=== PATIENT | female | born 1950 | race Caucasian/White ===

== ENCOUNTER 2018-02-03 22:24 | Emergency (ER) | payer OTHER ==
[~2018-02-03] VITALS: Ht 170.2 cm; Wt 90.0 kg
[~2018-02-03 22:24] MED LIST: ACTO5TAB PO; ARIP2 PO; BYST10TA2 PO; CLON-352 PO; CLON0.5T PO; CYMB60CA PO; LEVO25TA36 PO; OXYC-360 PO; PROT40TA PO
[2018-02-03 22:29] VITALS: BP 130/75; PULSE 75; RESP 16; TEMP 98.6; O2SAT 100
[2018-02-03] MEDS ORDERED: SODIUM CHLORID 0.9% 500 ML INJ 500 ML IV ONE (22:45)
[2018-02-03] MEDS ORDERED: ROSU1TAB6 PO (22:46)
[2018-02-03] MEDS ORDERED: VITA2000 PO (22:46)
[2018-02-03] MEDS ORDERED: CLON0.5T PO (22:46)
[2018-02-03] MEDS ORDERED: INUL2TAB2 (22:46)
[2018-02-03] MEDS ORDERED: LEVO50TA4 PO (22:46)
[2018-02-03] MEDS ORDERED: TIZA4CAP3 PO (22:46)
[2018-02-03] MEDS ORDERED: PROB1CHW4 CHEW (22:46)
[2018-02-03] MEDS ORDERED: PANT40TA3 PO (22:46)
[2018-02-03] MEDS ORDERED: CLON0.1T PO (22:46)
[2018-02-03] MEDS ORDERED: MULT-244 (22:46)
[2018-02-03] MEDS ORDERED: MAGN250T11 PO (22:46)
[2018-02-03] MEDS ORDERED: ARIP1TAB12 PO (22:46)
[2018-02-03] MEDS ORDERED: DULO1CAP3 PO (22:46)
[2018-02-03] MEDS ORDERED: METO25TA3 PO (22:46)
[2018-02-03] MEDS ORDERED: AMLO5TAB2 PO (22:46)
[2018-02-03] MEDS ORDERED: LOSA50TA PO (22:46)
[2018-02-03] MEDS ORDERED: MODA200T12 PO (22:46)
[2018-02-03] MEDS ORDERED: CALC1TAB87 PO (22:46)
[2018-02-03] MEDS ORDERED: MELO15TA20 PO (22:46)
[2018-02-03] MEDS ORDERED: RISE1TAB13 PO (22:46)
[2018-02-03 23:33] LABS: ALBUMIN 2.7 GM/DL (3.4-5.0); ALT (GPT) 29 U/L (10-53); AST (GOT) 28 U/L (15-37); BICARBONATE 24.6 MEQ/L (21.0-32.0); BLOOD UREA NITROGEN 18 MG/DL (7-18); CALCIUM 8.4 MG/DL (8.5-10.1); CHLORIDE 111 MEQ/L (98-107); CREATININE 1.04 MG/DL (0.50-1.00); GLOMERULAR FILTRATION RATE 53 ML/MIN (>89); GLUCOSE,RANDOM 102 MG/DL (74-106); SODIUM (NA) 143 MEQ/L (136-145)
[2018-02-03 23:35] LABS: ALKALINE PHOSPHATASE 44 U/L (45-117); TOTAL BILIRUBIN ADULT 0.2 MG/DL (0.2-1.0); TOTAL PROTEIN 6.1 GM/DL (6.4-8.2)
--- NOTE | 2018-02-03 23:51 | PD ---
Physical Exam Date Seen by Provider: Feb 03, 2018 Time Seen by Provider: 23:48 Narrative 67-year-old here for evaluation to repair laceration. Please refer to his note. Data Data Last Documented VS Vital Signs Date Time Temp Pulse Resp B/P (MAP) Pulse Ox O2 Delivery O2 Flow Rate FiO2 02/03/18 22:33 16 100 Room Air 02/03/18 22:29 98.6 75 130/75 (93) Orders Orders Complete Blood Count With Diff (02/03/18 22:38) Comprehensive Metabolic Panel (02/03/18 22:38) Sodium Chlorid 0.9% 500 Ml Inj (Ns 500 M (02/03/18 22:45) Ct Brain W/O Iv Contrast(Rout) (02/03/18 ) Ct Facial Bones W/O Iv Cont (02/03/18 ) Ct Cerv Spine W/O Contrast (02/03/18 ) Labs Laboratory Tests Test 02/03/18 22:50 Blood Urea Nitrogen 18 MG/DL Creatinine 1.04 MG/DL Random Glucose 102 MG/DL Total Protein 6.1 GM/DL Albumin 2.7 GM/DL Calcium Level 8.4 MG/DL Alkaline Phosphatase 44 U/L Aspartate Amino Transf (AST/SGOT) 28 U/L Alanine Aminotransferase (ALT/SGPT) 29 U/L Total Bilirubin 0.2 MG/DL Sodium Level 143 MEQ/L Potassium Level 4.2 MEQ/L Chloride Level 111 MEQ/L Carbon Dioxide Level 24.6 MEQ/L Anion Gap 7 MEQ/L Estimat Glomerular Filtration Rate 53 ML/MIN MDM Medical Record Reviewed: Yes Supervised Visit with KYMBERLY: No Procedures Procedure Narrative LACERATION LOCATION: face LENGTH: 15 cm NUMBER OF STITCHES/BIMAL: 36 sutures, 7 sutures (deep) REPAIR: The area of the laceration was prepped with Betadine and sterilely draped. The laceration was infiltrated with 1% Xylocaine. The wound was copiously irrigated and explored without evidence of foreign body, tendon injury or neurovascular injury. The wound was closed using 4-0 Prolene and 4-0 Vycril. This was a 2 layer repair. A sterile dressing was applied. The patient was advised to keep the dressing clean and dry. Patient tolerated the procedure well. Ti Mckeon Feb 03, 2018 23:51
[2018-02-03 23:57] LABS: AUTOMATED NEUTROPHIL # 4.2 TH/MM3 (1.8-7.7); BASOPHIL # 0.1 TH/MM3 (0-0.2); BASOPHIL % 0.9 % (0.0-2.0); EOSINOPHIL # 0.3 TH/MM3 (0-0.4); EOSINOPHIL % 4.6 % (0.0-4.0); HEMATOCRIT 40.5 % (35.0-46.0); HEMOGLOBIN 12.9 GM/DL (11.6-15.3); LYMPH % 26.4 % (9.0-44.0); LYMPHOCYTE # 1.8 TH/MM3 (1.0-4.8); MEAN CELL VOLUME 95.2 FL (80.0-100.0); MEAN CORPUSCULAR HEMOGLOBIN 30.3 PG (27.0-34.0); MEAN CORPUSCULAR HGB CONC 31.9 % (32.0-36.0); MEAN PLATELET VOLUME 8.2 FL (7.0-11.0); MONO % 7.3 % (0.0-8.0); MONOCYTE # 0.5 TH/MM3 (0-0.9); NEUT % 60.8 % (16.0-70.0); PLATELET COUNT 299 TH/MM3 (150-450); RED BLOOD COUNT 4.25 MIL/MM3 (4.00-5.30); RED CELL DISTRIBUTION WIDTH 14.8 % (11.6-17.2)
--- NOTE | 2018-02-04 00:40 | PD ---
HPI Chief Complaint: Fall Time Seen by Provider: 22:33 Travel History International Travel<30 days: No Contact w/Intl Traveler<30days: No Traveled to known affect area: No History of Present Illness HPI Patient is a 67-year-old female who fell out of her bed getting up to go to the bathroom and smashed her face into nightstand has a 20 cm laceration from her her scalp line midline down into her mid right forehead all the way out to the right caodaism is linear in a flap-like picture. She denies syncope she says she tripped patient had a lot of blood at the scene according the paramedics and originally was hypotensive was given 500 cc bolus arrives normotensive at 120 systolic and patient main complaint is her left elbow and left shoulder and forehead pain she is in c-collar and longboard we logrolled her off the backboard she has no spinous process tenderness and she is CAT scan head neck face and suture repair will be done by the [facility] Past Medical History Arthritis: Yes Asthma: No Autoimmune Disease: No Anxiety: No Depression: Yes Heart Rhythm Problems: No Cancer: No Cardiovascular Problems: Yes High Cholesterol: Yes Chemotherapy: No Chest Pain: No Congestive Heart Failure: No COPD: No Cerebrovascular Accident: No Diabetes: No Diminished Hearing: No Endocrine: Yes GERD: Yes Genitourinary: No Headaches: Yes Hiatal Hernia: No Hypertension: Yes Immune Disorder: No Musculoskeletal: Yes Neurologic: Yes Psychiatric: Yes Reproductive: No Respiratory: Yes Migraines: No Radiation Therapy: No Seizures: No Sleep Apnea: Yes (USES CPAP MACHINE) Thyroid Disease: Yes Ulcer: No Tetanus Vaccination: < 5 Years Influenza Vaccination: No Past Surgical History Abdominal Surgery: Yes (COLOSTOMY, COLOSTOMY REVERSAL) Body Medical Devices: PARTIAL THYROID WITH BIMAL, NECK WITH SCREWS Joint Replacement: Yes (BILATERAL HIPS) Oral Surgery: Yes (T&A, WISDOM TEETH) Pacemaker: No Thoracic Surgery: Yes (PARTIAL THYROIDECTOMY) Social History Alcohol Use: No Tobacco Use: No Substance Use: No Allergies-Medications (Allergen,Severity, Reaction): Coded Allergies: Sulfa (Sulfonamide Antibiotics) (Unverified Allergy, Severe, ITCH, 02/03/18) morphine (Unverified Allergy, Severe, VOMITING, 02/03/18) Reported Meds & Prescriptions Reported Meds & Active Scripts Active Keflex (Cephalexin) 250 Mg Cap 250 Mg PO Q8HR Bacitracin Topical 500 Unit/Gm Oint 1 Applic TOPICAL BID Ibuprofen 600 Mg Tab 600 Mg PO Q6H PRN [place] (Hydrocodone-Acetaminophen) 5 Mg-325 Mg Tab 1 Tab PO Q4H PRN Reported Digestive Advantage Probiotic (Lactobacillus Rhamnosus (GG)) 1 Chew 1 Tab CHEW Fiber Gummies (Inulin) 2 Gram Tab.chew Vitamin D3 (Cholecalciferol) 2,000 Unit Cap 2,000 Units PO DAILY Magnesium Oxide 250 Mg Tab 250 Mg PO DIRECTED Calcium 600 with Vitamin D (Calcium Carbonate-Cholecalciferol) 600-400 mg-Unit Tab 1 Tab PO DAILY Spectravite Senior (Multivit with Iron-Minerals) 1 Each Tablet Tizanidine (Tizanidine HCl) 4 Mg Cap 4 Mg PO TID Aripiprazole 10 Mg Tab 10 Mg PO DAILY Clonazepam 0.5 Mg Tab 0.5 Mg PO BID Duloxetine DR (Duloxetine HCl) 60 Mg Capdr 60 Mg PO DAILY Clonidine (Clonidine HCl) 0.1 Mg Tab 0.1 Mg PO BID Risedronate 150 Mg Tab 150 Mg PO Q30D Amlodipine (Amlodipine Besylate) 5 Mg Tab 5 Mg PO DAILY Metoprolol Tartrate 25 Mg Tab 25 Mg PO BID Losartan (Losartan Potassium) 50 Mg Tab 50 Mg PO DAILY Rosuvastatin (Rosuvastatin Calcium) 10 Mg Tab 10 Mg PO HS Modafinil 200 Mg Tab 200 Mg PO DAILY Pantoprazole (Pantoprazole Sodium) 40 Mg Tab 40 Mg PO DAILY Meloxicam 15 Mg Tab 15 Mg PO DAILY Levothyroxine (Levothyroxine Sodium) 50 Mcg Tab 50 Mcg PO DAILY Review of Systems Except as stated in HPI: all other systems reviewed are Neg Physical Exam Narrative GENERAL: Obvious large linear laceration 20 cm to the forehead from the scalp line to the right caodaism. Bleeding controlled with a pressure dressing SKIN: Warm and dry. Large 20 cm linear lack through the forehead to the right caodaism HEAD: Atraumatic. Normocephalic. EYES: Pupils equal and round. No scleral icterus. No injection or drainage. ENT: No nasal bleeding or discharge. Mucous membranes pink and moist. NECK: Trachea midline. No JVD. Patient is in c-collar CARDIOVASCULAR: Regular rate and rhythm. RESPIRATORY: No accessory muscle use. Clear to auscultation. Breath sounds equal bilaterally. GASTROINTESTINAL: Abdomen soft, non-tender, nondistended. Hepatic and splenic margins not palpable. MUSCULOSKELETAL: Extremities patient has tenderness and swelling to the left elbow and the left shoulder NEUROLOGICAL: Awake and alert. No obvious cranial nerve deficits. Motor grossly within normal limits. Five out of 5 muscle strength in the arms and legs. Normal speech. PSYCHIATRIC: Appropriate mood and affect; insight and judgment normal. Data Data Last Documented VS Vital Signs Date Time Temp Pulse Resp B/P (MAP) Pulse Ox O2 Delivery O2 Flow Rate FiO2 02/03/18 22:33 16 100 Room Air 02/03/18 22:29 98.6 75 130/75 (93) Orders Orders Complete Blood Count With Diff (02/03/18 22:38) Comprehensive Metabolic Panel (02/03/18 22:38) Sodium Chlorid 0.9% 500 Ml Inj (Ns 500 M (02/03/18 22:45) Ct Brain W/O Iv Contrast(Rout) (02/03/18 ) Ct Facial Bones W/O Iv Cont (02/03/18 ) Ct Cerv Spine W/O Contrast (02/03/18 ) Shoulder, Complete (>2vws) (02/03/18 ) Elbow, Complete (4 Vws) (02/04/18 ) Morphine Inj (Morphine Inj) (02/04/18 01:15) Ed Discharge Order (02/04/18 02:20) Labs Laboratory Tests Test 02/03/18 22:50 02/03/18 23:45 Blood Urea Nitrogen 18 MG/DL Creatinine 1.04 MG/DL Random Glucose 102 MG/DL Total Protein 6.1 GM/DL Albumin 2.7 GM/DL Calcium Level 8.4 MG/DL Alkaline Phosphatase 44 U/L Aspartate Amino Transf (AST/SGOT) 28 U/L Alanine Aminotransferase (ALT/SGPT) 29 U/L Total Bilirubin 0.2 MG/DL Sodium Level 143 MEQ/L Potassium Level 4.2 MEQ/L Chloride Level 111 MEQ/L Carbon Dioxide Level 24.6 MEQ/L Anion Gap 7 MEQ/L Estimat Glomerular Filtration Rate 53 ML/MIN White Blood Count 7.0 TH/MM3 Red Blood Count 4.25 MIL/MM3 Hemoglobin 12.9 GM/DL Hematocrit 40.5 % Mean Corpuscular Volume 95.2 FL Mean Corpuscular Hemoglobin 30.3 PG Mean Corpuscular Hemoglobin Concent 31.9 % Red Cell Distribution Width 14.8 % Platelet Count 299 TH/MM3 Mean Platelet Volume 8.2 FL Neutrophils (%) (Auto) 60.8 % Lymphocytes (%) (Auto) 26.4 % Monocytes (%) (Auto) 7.3 % Eosinophils (%) (Auto) 4.6 % Basophils (%) (Auto) 0.9 % Neutrophils # (Auto) 4.2 TH/MM3 Lymphocytes # (Auto) 1.8 TH/MM3 Monocytes # (Auto) 0.5 TH/MM3 Eosinophils # (Auto) 0.3 TH/MM3 Basophils # (Auto) 0.1 TH/MM3 CBC Comment DIFF FINAL Differential Comment MDM Medical Decision Making Medical Screen Exam Complete: Yes Emergency Medical Condition: Yes Differential Diagnosis scalp lac vs fracture skull vs fractured elbow shoulder left possible dislocation , right rib pain . Narrative Course pt has LArge flap laceration requiring double layer repair done by the [facility] with very good cosmetic repair and good detail done to repair to minimize scarring over 1 hr of his time spent repairing , Pt has labs and CT head and cervical spine and facial bones to rule out fracture or intracranila bleed or contusion, CT are negative and I clean her hair of dried blood and place bacitracin over her repaired laceration . Pt ambulates without issue and feels comfortable to go home with 7 days return for wound eval and suture removal, I inform the need to keep scar out of direct sunlight for the next 3 months and to use sun block after sutures out and hat . pt and are planning to drive to [facility] I advise then they need to see an MD in 7days for wound eval Diagnosis Primary Impression: Head trauma Qualified Codes: S09.90XA - Unspecified injury of head, initial encounter Additional Impressions: Laceration of face, complex Qualified Codes: S01.91XA - Laceration without foreign body of unspecified part of head, initial encounter Laceration of face, complicated Qualified Codes: S01.81XA - Laceration without foreign body of other part of head, initial encounter Patient Instructions: Facial Laceration (ED), General Instructions Additional Instructions: Keep facial sutures dry for next 2 days then you can shower , but do not submerge your head until 7 days when sutures come out. Sutures to be removed in 7 days , Keep face out of direct sunlight over next 2 months to minimize scarring. Scripts Cephalexin (Keflex) 250 Mg Cap 250 MG PO Q8HR for Infection, #15 CAP 0 Refills Prov: Thien Barber MD 02/04/18 Bacitracin Topical (Bacitracin Topical) 500 Unit/Gm Oint 1 APPLIC TOPICAL BID for Infection, #30 GM 0 Refills Prov: Thien Barber MD 02/04/18 Ibuprofen (Ibuprofen) 600 Mg Tab 600 MG PO Q6H Y for Pain/Inflammation, #20 TAB 0 Refills Prov: Thien Barber MD 02/04/18 Hydrocodone-Acetaminophen ([place]) 5 Mg-325 Mg Tab 1 TAB PO Q4H Y for PAIN, #10 TAB 0 Refills Prov: Thien Barber MD 02/04/18 Disposition: 01 DISCHARGE HOME Condition: Good Thien Barber MD Feb 04, 2018 00:40
--- NOTE | 2018-02-04 00:57 | RADRPT ---
EXAM DATE/TIME: 02/03/2018 23:56 [facility] COMPARISON: No previous studies available for comparison. INDICATIONS : Trauma, fall. Laceration to right forehead. RADIATION DOSE: 56.35 CTDIvol (mGy) MEDICAL HISTORY : Hypertension. Osteoporosis. SURGICAL HISTORY : Fusion, cervical. ENCOUNTER: Initial ACUITY: 1 day PAIN SCALE: 6/10 LOCATION: cranial TECHNIQUE: Multiple contiguous axial images were obtained of the head. Using automated exposure control and adj ustment of the mA and/or kV according to patient size, radiation dose was kept as low as reasonably a chievable to obtain optimal diagnostic quality images. DICOM format image data is available electro nically for review and comparison. FINDINGS: CEREBRUM: The ventricles are normal for age. No evidence of midline shift, mass lesion, hemorrhage or acute in farction. No extra-axial fluid collections are seen. 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 POSTERIOR FOSSA: The cerebellum and brainstem are intact. The 4th ventricle is midline. The cerebellopontine angle i s unremarkable. EXTRACRANIAL: The visualized portion of the orbits is intact. Evidence of right frontal scalp laceration. SKULL: The calvaria is intact. No evidence of skull fracture. CONCLUSION: No acute intracranial findings. Bernardino Orosco MD on February 04, 2018 at 0:53 Board Certified Radiologist. This report was verified electronically.
--- NOTE | 2018-02-04 01:04 | RADRPT ---
EXAM DATE/TIME: 02/03/2018 23:56 [facility] COMPARISON: No previous studies available for comparison. INDICATIONS : Trauma, fall. Laceration to right forehead. RADIATION DOSE: 21.43 CTDIvol (mGy) MEDICAL HISTORY : Hypertension. Osteoporosis. SURGICAL HISTORY : Fusion, cervical. ENCOUNTER: Initial ACUITY: 1 day PAIN SCALE: 5/10 LOCATION: neck TECHNIQUE: Volumetric scanning of the cervical spine was performed. Multiplanar reconstructions in the sagittal, coronal and oblique axial planes were performed. Using automated exposure control and adjustment o f the mA and/or kV according to patient size, radiation dose was kept as low as reasonably achievable to obtain optimal diagnostic quality images. DICOM format image data is available electronically f or review and comparison. FINDINGS: VERTEBRAE: Marked cervical kyphosis centered at C4-5. 6 mm anterolisthesis C3 on C4, likely chronic. There is ev idence of bone bridging between the C3 and C4 vertebral bodies. Anterior fusion hardware is seen at C 3-4. Hardware is intact. No evidence of acute fracture. 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 Mild to moderate central canal narrowing at the craniocervical junction. C2-C3: Moderate left-sided facet arthrosis. Moderate left neural foraminal narrowing. Central canal diameter within normal limits. C3-C4: Bony fusion at this level. Anterior fusion hardware. Severe left-sided facet arthrosis. Severe left n eural foraminal narrowing. Mild central canal narrowing. C4-C5: Broad-based disc osteophyte complex. No evidence of focal disc protrusion. Central canal normal diame ter. Neural foraminal diameters within normal limits. C5-C6: Broad-based disc osteophyte complex. Mild central canal narrowing. Neural foraminal diameter is withi n normal limits. C6-C7: Broad-based disc osteophyte complex. Mild/moderate central canal narrowing. Moderate left neural fora vladimir narrowing. C7-T1: Bilateral facet arthrosis. Mild left neural foraminal narrowing. Central canal diameter within normal limits. CONCLUSION: 1. No evidence of acute fracture. 2. Postsurgical findings at C3-4 with anterior fusion hardware and bony fusion. Mild central canal na rrowing at this level. 3. 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 Mild/mo derate central canal narrowing at the craniocervical junction. Likely chronic findings. 4. Prominent cervical kyphosis centered at C4-5. 5. Multilevel degenerative findings in the cervical spine with broad-based disc osteophyte complex at C6-7 resulting in mild/moderate central canal narrowing. Bernardino Orosco MD on February 04, 2018 at 0:55 Board Certified Radiologist. This report was verified electronically.
--- NOTE | 2018-02-04 01:06 | RADRPT ---
EXAM DATE/TIME: 02/03/2018 23:56 [facility] COMPARISON: No previous studies available for comparison. INDICATIONS : Trauma, fall. Laceration to right forehead. RADIATION DOSE: 21.96 CTDIvol (mGy) MEDICAL HISTORY : Osteoporosis. Hypertension. SURGICAL HISTORY : Fusion, cervical. ENCOUNTER: Initial ACUITY: 1 day PAIN SCORE: 7/10 LOCATION: facial TECHNIQUE: Volumetric scanning of the facial bones was performed. Using automated exposure control and adjustme nt of the mA and/or kV according to patient size, radiation dose was kept as low as reasonably achiev able to obtain optimal diagnostic quality images. DICOM format image data is available electronicall y for review and comparison. FINDINGS: Gas in the superficial soft tissues of the right frontal region. No evidence of fracture. Orbits are intact. Globes are symmetric. Paranasal sinuses are clear. CONCLUSION: No evidence of fracture. Bernardino Orosco MD on February 04, 2018 at 1:02 Board Certified Radiologist. This report was verified electronically.
--- NOTE | 2018-02-04 01:07 | RADRPT ---
EXAM DATE/TIME: 02/04/2018 00:11 [facility] COMPARISON: No previous studies available for comparison. INDICATIONS : Patient complains of left shoudler pain status post fall. MEDICAL HISTORY : None. SURGICAL HISTORY : None. ENCOUNTER: Initial ACUITY: 1 day PAIN SCORE: 6/10 LOCATION: Left Shoulder FINDINGS: 4 views left shoulder. Bone alignment within normal limits. No evidence of fracture. Glenohumeral leia int within normal limits. Acromioclavicular joint within normal limits. CONCLUSION: No evidence of fracture. Bernardino Orosco MD on February 04, 2018 at 1:04 Board Certified Radiologist. This report was verified electronically.
[2018-02-04] MEDS ORDERED: MORPHINE SULFATE 4 MG/ML INJ IV PUSH ONE (01:15)
--- NOTE | 2018-02-04 01:42 | RADRPT ---
EXAM DATE/TIME: 02/04/2018 01:22 [facility] COMPARISON: SHOULDER LEFT COMPLETE (>2VWS), February 04, 2018, 0:11. INDICATIONS : Pain post fall. MEDICAL HISTORY : None. SURGICAL HISTORY : None. ENCOUNTER: Initial ACUITY: 1 day PAIN SCORE: 5/10 LOCATION: Left Elbow. FINDINGS: 4 views left elbow. Bone alignment within normal limits. No evidence of fracture. No evidence of yu nt effusion. Corticated ossicle of the lateral epicondyle likely are presenting sequela of remote tra dre or tendinosis. CONCLUSION: No evidence of acute fracture. Bernardino Orosco MD on February 04, 2018 at 1:37 Board Certified Radiologist. This report was verified electronically.
[2018-02-04] MEDS ORDERED: NORC5TAB PO (02:23)
[2018-02-04] MEDS ORDERED: IBUP-232 PO (02:23)
[2018-02-04] MEDS ORDERED: BACI500O9 TOPICAL (02:27)
[2018-02-04] MEDS ORDERED: CEPH-459 PO (02:28)
== END 2018-02-04 02:55 | disposition home or self-care (01) ==
LOC: NEPE 22:24
DX: S01.81XA Laceration without foreign body of other part of head, initial encounter (principal); W06.XXXA Fall from bed, initial encounter; F32.9 Major depressive disorder, single episode, unspecified; E78.00 Pure hypercholesterolemia, unspecified; K21.9 Gastro-esophageal reflux disease without esophagitis; I10 Essential (primary) hypertension; E07.9 Disorder of thyroid, unspecified; M19.90 Unspecified osteoarthritis, unspecified site
CPT/HCPCS: 12055; 70450; 70486; 72125; 73030; 73080; 80053; 85025; 96361; 96374; 99285; J2270; J7040